=== PATIENT | male | born 1990 | race Caucasian/White ===

== ENCOUNTER 2017-01-07 20:43 | Emergency (ER) | payer MEDICARE, MEDICAID ==
--- NOTE | 2017-01-07 21:11 | EDM.PDOC ---
ED HPI GENERAL MEDICAL PROBLEM - General Chief Complaint: Burn Stated Complaint: BURN/LT ARM/FACE Time Seen by Provider: 01/07/17 21:07 Source of Information: Reports: RN - History of Present Illness INITIAL COMMENTS - FREE TEXT/NARRATIVE: He presented to the ED today after a scald injury from a pressure cooker. No blunt force trauma reports tetanus booster within the past three years. Left Arm Pain Score (Numeric/FACES): 10 - Related Data Allergies Allergy/AdvReac Type Severity Reaction Status Date / Time ibuprofen Allergy Other Verified 01/07/17 20:58 quetiapine [From Seroquel] Allergy Other Verified 01/07/17 20:58 Past Medical History HEENT History: Reports: None Cardiovascular History: Reports: None Respiratory History: Reports: None Gastrointestinal History: Reports: None Genitourinary History: Reports: None Musculoskeletal History: Reports: None Neurological History: Reports: Other (See Below) Other Neuro History: brain tumor Psychiatric History: Reports: None Endocrine/Metabolic History: Reports: None Hematologic History: Reports: None Immunologic History: Reports: None Oncologic (Cancer) History: Reports: None Dermatologic History: Reports: None - Infectious Disease History Infectious Disease History: Reports: Chicken Pox - Past Surgical History Head Surgeries/Procedures: Reports: None HEENT Surgical History: Reports: None Musculoskeletal Surgical History: Reports: Other (See Below) Other Musculoskeletal Surgeries/Procedures:: foot sx Social & Family History - Tobacco Use Smoking Status *Q: Never Smoker - Caffeine Use Caffeine Use: Reports: Soda, Tea - Recreational Drug Use Recreational Drug Use: No ED ROS GENERAL - Review of Systems Review Of Systems: See Below Constitutional: Reports: Other (no other complaints.) Respiratory: Denies: Shortness of Breath, Cough, Sputum ED EXAM, BURN/SMOKE INHALATION - Physical Exam Exam: See Below General Appearance: Alert, No Apparent Distress Respiratory: No Respiratory Distress Extremity Exam: Other (erythema over volar left forearm with some involvement of left hand and some blistering ulnar wrist. 1x1cm reddened area below mid lower lip. slight erythema upper anterior chest) Neurological: Alert Psychiatric: Normal Affect Course - Vital Signs Last Recorded V/S: Last Vital Signs Temp 97.1 F 01/07/17 20:58 Pulse 76 01/07/17 20:58 Resp 17 01/07/17 20:58 BP 167/98 H 01/07/17 20:58 Pulse Ox 97 01/07/17 20:58 - Orders/Labs/Meds Orders: Active Orders 24 hr Category Date Time Status Communication Order [RC] STAT Care 01/07/17 21:05 Ordered Departure - Departure Time of Disposition: 21:10 Disposition: Home, Self-Care 01 Condition: Good Clinical Impression: Scalding injury - Discharge Information Forms: ED Department Discharge Additional Instructions: keep maldonado clean recheck for a wound check tomorrow. blood pressure recheck with wound recheck tomorrow. - My Orders Last 24 Hours: My Active Orders 01/07/17 21:05 Communication Order [RC] STAT - Assessment/Plan Last 24 Hours: My Active Orders 01/07/17 21:05 Communication Order [RC] STAT
== END 2017-01-07 21:30 | disposition home or self-care (01) ==
LOC: MW.ED 20:43
CPT/HCPCS: 99282; 99283

== ENCOUNTER 2017-11-27 10:21 | Emergency (ER) | payer MEDICARE, MEDICAID ==
--- NOTE | 2017-11-27 11:41 | EDM.PDOC ---
ED HPI GENERAL MEDICAL PROBLEM - General Chief Complaint: ENT Problem Stated Complaint: SORE THROAT Time Seen by Provider: 11/27/17 11:37 Source of Information: Reports: Patient, Family History Limitations: Reports: No Limitations - History of Present Illness INITIAL COMMENTS - FREE TEXT/NARRATIVE: HISTORY AND PHYSICAL: []A 27-year-old male presenting with left-sided throat pain for 2 days History of Present Illness: []2 days pain has continued not improving He has been gargling with silver collodion Review of Systems: As per history of present illness and below otherwise all systems reviewed and negative. Past medical history: As per history of present illness and as reviewed below otherwise noncontributory. Surgical history: As per history of present illness and as reviewed below otherwise noncontributory. Social history: No reported history of drug or alcohol abuse. Family history: As per history of present illness and as reviewed below otherwise noncontributory. Physical exam: Alert and oriented male answering questions appropriately in full sentences without any shortness of breath HEENT: Atraumatic, normocehpalic, pupils reactive, negative for conjunctival pallor or scleral icterus, mucous membranes moist, throat clear, neck supple, nontender, trachea midline. Tenderness noted to the left neck area he does have shotty cervical adenopathy. Throat is erythematous mild edema on the left Lungs: Clear to auscultation, breath sounds equal bilaterally, chest non tender. Heart: S1S2, regular, negative for clicks, rubs, or JVD. Abdomen: Soft, nondistended, nontender. Negative for masses or hepatossplenmegaly. Negative for costovertebral tenderness. Pelvis: Stable nontender. Genitourinary: Deferred. Rectal: Deferred Extremities: Atraumatic, negative for cords or calf pain. Neurovascular unremarkable. Neuro: Awake, alert, oriented. Cranial nerves II through XII unremarkable. Cerebellum unremarkable. Motor and sensory unremarkable throughout. Exam nonfocal. Diagnostics: [] Therapeutics: [] Impression: []Acute pharyngitis Plan: []Discharged home Augmentin 875 twice a day 7 days Definitive disposition and diagnosis as appropriate pending reevaluation and review of above. Onset: Sudden Duration: Day(s): (2) Throat Pain Score (Numeric/FACES): 4 - Related Data Allergies Allergy/AdvReac Type Severity Reaction Status Date / Time ibuprofen Allergy Other Verified 11/27/17 10:53 quetiapine [From Seroquel] Allergy Other Verified 11/27/17 10:53 Home Meds: Home Meds ARIPiprazole [Aripiprazole] 20 mg PO BEDTIME 11/27/17 [History] Amoxicillin/Potassium Clav [Augmentin 875-125 Tablet] 1 each PO BID #14 tablet 11/27/17 [Rx] OXcarbazepine [Oxcarbazepine] 600 mg PO ASDIRECTED 11/27/17 [History] PARoxetine HCl [Paroxetine HCl] 15 mg PO BID 11/27/17 [History] Pantoprazole Sodium 40 mg PO DAILY 11/27/17 [History] buPROPion HCl [Wellbutrin Xl] 300 mg PO DAILY 11/27/17 [History] Past Medical History HEENT History: Reports: None Cardiovascular History: Reports: None Respiratory History: Reports: None Gastrointestinal History: Reports: None Genitourinary History: Reports: None Musculoskeletal History: Reports: None Neurological History: Reports: Other (See Below) Other Neuro History: brain tumor Psychiatric History: Reports: None Endocrine/Metabolic History: Reports: None Hematologic History: Reports: None Immunologic History: Reports: None Oncologic (Cancer) History: Reports: None Dermatologic History: Reports: None - Infectious Disease History Infectious Disease History: Reports: Chicken Pox - Past Surgical History Head Surgeries/Procedures: Reports: None HEENT Surgical History: Reports: None Musculoskeletal Surgical History: Reports: Other (See Below) Other Musculoskeletal Surgeries/Procedures:: foot sx Social & Family History - Caffeine Use Caffeine Use: Reports: Soda, Tea ED ROS ENT - Review of Systems Review Of Systems: ROS reveals no pertinent complaints other than HPI. ED EXAM, ENT - Physical Exam Exam: See Below (See dictation) Course - Vital Signs Last Recorded V/S: Last Vital Signs Temp 36.9 C 11/27/17 10:51 Pulse 82 11/27/17 10:51 Resp 20 11/27/17 10:51 BP 142/84 H 11/27/17 10:51 Pulse Ox 98 11/27/17 10:51 Departure - Departure Time of Disposition: 11:39 Disposition: Home, Self-Care 01 Condition: Good Clinical Impression: Pharyngitis Qualifiers: Pharyngitis/tonsillitis etiology: unspecified etiology Qualified Code(s): J02.9 - Acute pharyngitis, unspecified - Discharge Information Prescriptions: Amoxicillin/Potassium Clav [Augmentin 875-125 Tablet] 1 each PO BID #14 tablet Referrals: PCP,None [Primary Care Provider] - Additional Instructions: The following information is given to patients seen in the emergency department who are being discharged to home. This information is to outline your options for follow-up care. We provide all patients seen in our emergency department with a follow-up referral. The need for follow-up, as well as the timing and circumstances, are variable depending upon the specifics of your emergency department visit. If you don't have a primary care physician on staff, we will provide you with a referral. We always advise you to contact your personal physician following an emergency department visit to inform them of the circumstance of the visit and for follow-up with them and/or the need for any referrals to a consulting specialist. The emergency department will also refer you to a specialist when appropriate. This referral assures that you have the opportunity for followup care with a specialist. All of these measure are taken in an effort to provide you with optimal care, which includes your followup. Under all circumstances we always encourage you to contact your private physician who remains a resource for coordinating your care. When calling for followup care, please make the office aware that this follow-up is from your recent emergency room visit. If for any reason you are refused follow-up, please contact the [facility] emergency department at and asked to speak to the emergency department charge nurse. He had acute pharyngitis Prescription for Augmentin 875 mg one twice daily for 7 days Follow-up with your primary care provider next week Return to emergency room as directed and discussed
[2017-11-27 12:10] VITALS: BP 141/86
== END 2017-11-27 12:08 | disposition home or self-care (01) ==
LOC: MW.ED 10:21
DX: J02.9 Acute pharyngitis, unspecified (principal); Z88.6 Allergy status to analgesic agent; Z88.8 Allergy status to other drugs, medicaments and biological substances; Z79.899 Other long term (current) drug therapy
CPT/HCPCS: 99282; 99283

== ENCOUNTER 2017-12-03 19:46 | Emergency (ER) | payer MEDICARE, MEDICAID ==
--- NOTE | 2017-12-03 20:07 | EDM.PDOC ---
ED HPI GENERAL MEDICAL PROBLEM - General Chief Complaint: Lower Extremity Injury/Pain Stated Complaint: SCREWS IN FEET IS HURTING Time Seen by Provider: 12/03/17 20:07 Source of Information: Reports: Patient - History of Present Illness INITIAL COMMENTS - FREE TEXT/NARRATIVE: HISTORY AND PHYSICAL: History of present illness: [Patient has a history of hammertoe and screw placement in 2011, he is now having 8 out of 10 pain with walking and feels that the screws are working loose as it feels as if sharp pain while walking, pain is relieved by nonweightbearing positions pain involves bilateral great toes No fever nausea vomiting chills sweats Review of systems: As per history of present illness and below otherwise all systems reviewed and negative. Past medical history: As per history of present illness and as reviewed below otherwise noncontributory. Surgical history: As per history of present illness and as reviewed below otherwise noncontributory. Social history: No reported history of drug or alcohol abuse. Family history: As per history of present illness and as reviewed below otherwise noncontributory. Physical exam: HEENT: Atraumatic, normocephalic, pupils reactive, negative for conjunctival pallor or scleral icterus, mucous membranes moist, throat clear, neck supple, nontender, trachea midline. Lungs: Clear to auscultation, breath sounds equal bilaterally, chest nontender. Heart: S1S2, regular, negative for clicks, rubs, or JVD. Abdomen: Soft, nondistended, nontender. Negative for masses or hepatosplenomegaly. Negative for costovertebral tenderness. Pelvis: Stable nontender. Genitourinary: Deferred. Rectal: Deferred. Extremities: Atraumatic, negative for cords or calf pain. Neurovascular unremarkable. Feet unaffected above the ankle no redness warmth or fluctuance lesion surgical scars noted tender on the distal metatarsal joint bilaterally Neuro: Awake, alert, oriented. Cranial nerves II through XII unremarkable. Cerebellum unremarkable. Motor and sensory unremarkable throughout. Exam nonfocal. Diagnostics: [Foot 2 views left Foot 2 views right] CBC uric acid Therapeutics: [Indocin 50 mg by mouth 3 times a day #30 no refill Gout diet discussed Follow-up with primary care ] Impression: biLateral foot pain] Definitive disposition and diagnosis as appropriate pending reevaluation and review of above. Bilateral Feet Pain Score (Numeric/FACES): 7 - Related Data Allergies Allergy/AdvReac Type Severity Reaction Status Date / Time ibuprofen Allergy Other Verified 12/03/17 20:23 quetiapine [From Seroquel] Allergy Other Verified 12/03/17 20:23 Home Meds: Home Meds ARIPiprazole [Aripiprazole] 20 mg PO BEDTIME 11/27/17 [History] Amoxicillin/Potassium Clav [Augmentin 875-125 Tablet] 1 each PO BID #14 tablet 11/27/17 [Rx] OXcarbazepine [Oxcarbazepine] 600 mg PO ASDIRECTED 11/27/17 [History] PARoxetine HCl [Paroxetine HCl] 15 mg PO BID 11/27/17 [History] Pantoprazole Sodium 40 mg PO DAILY 11/27/17 [History] buPROPion HCl [Wellbutrin Xl] 300 mg PO DAILY 11/27/17 [History] Past Medical History HEENT History: Reports: None Cardiovascular History: Reports: None Respiratory History: Reports: None Gastrointestinal History: Reports: None Genitourinary History: Reports: None Musculoskeletal History: Reports: None Neurological History: Reports: Other (See Below) Other Neuro History: brain tumor Psychiatric History: Reports: None Endocrine/Metabolic History: Reports: None Hematologic History: Reports: None Immunologic History: Reports: None Oncologic (Cancer) History: Reports: None Dermatologic History: Reports: None - Infectious Disease History Infectious Disease History: Reports: Chicken Pox - Past Surgical History Head Surgeries/Procedures: Reports: None HEENT Surgical History: Reports: None Musculoskeletal Surgical History: Reports: Other (See Below) Other Musculoskeletal Surgeries/Procedures:: foot sx Social & Family History - Family History Family Medical History: Noncontributory - Caffeine Use Caffeine Use: Reports: Soda, Tea Review of Systems - Review of Systems Review Of Systems: See Below ED EXAM, GENERAL - Physical Exam Exam: See Below Course - Vital Signs Last Recorded V/S: Last Vital Signs Temp 97.6 F 12/03/17 20:00 Pulse 104 H 12/03/17 20:00 Resp 18 12/03/17 20:00 BP 142/74 H 12/03/17 20:00 Pulse Ox 92 L 12/03/17 20:00 - Orders/Labs/Meds Orders: Active Orders 24 hr Category Date Time Status Foot 2V Lt [CR] Stat Exams 12/03/17 20:06 Taken Foot 2V Rt [CR] Stat Exams 12/03/17 20:06 Taken Labs: Laboratory Tests 12/03/17 12/03/17 Range/Units 20:24 20:24 WBC 9.48 (4.0-11.0) K/uL RBC 5.29 (4.50-5.90) M/uL Hgb 16.8 (13.0-17.0) g/dL Hct 47.6 (38.0-50.0) % MCV 90.0 (80.0-98.0) fL MCH 31.8 (27.0-32.0) pg MCHC 35.3 (31.0-37.0) g/dL RDW Std Deviation 43.8 (28.0-62.0) fl RDW Coeff of Wiley 13 (11.0-15.0) % Plt Count 232 (150-400) K/uL MPV 9.90 (7.40-12.00) fL Neut % (Auto) 57.6 (48.0-80.0) % Lymph % (Auto) 33.6 (16.0-40.0) % [place] % (Auto) 7.8 (0.0-15.0) % Eos % (Auto) 0.8 (0.0-7.0) % Baso % (Auto) 0.2 (0.0-1.5) % Neut # (Auto) 5.5 (1.4-5.7) K/uL Lymph # (Auto) 3.2 H (0.6-2.4) K/uL [place] # (Auto) 0.7 (0.0-0.8) K/uL Eos # (Auto) 0.1 (0.0-0.7) K/uL Baso # (Auto) 0.0 (0.0-0.1) K/uL Nucleated RBC % 0.0 /100WBC Nucleated RBCs # 0 K/uL Uric Acid 7.1 (2.6-7.2) mg/dL Departure - Departure Time of Disposition: 21:23 Disposition: Home, Self-Care 01 Condition: Good Clinical Impression: Foot pain, Gout - Discharge Information Referrals: PCP,None [Primary Care Provider] - Forms: ED Department Discharge Additional Instructions: Medication as prescribed Diet as discussed Return if symptoms persist or worsen Follow-up with primary care or podiatry for continued management [facility] - Primary Care [address] [place] [address] [facility] Primary Care - Podiatry [address] [place] [address] The following information is given to patients seen in the emergency department who are being discharged to home. This information is to outline your options for follow-up care. We provide all patients seen in our emergency department with a follow-up referral. The need for follow-up, as well as the timing and circumstances, are variable depending upon the specifics of your emergency department visit. If you don't have a primary care physician on staff, we will provide you with a referral. We always advise you to contact your personal physician following an emergency department visit to inform them of the circumstance of the visit and for follow-up with them and/or the need for any referrals to a consulting specialist. The emergency department will also refer you to a specialist when appropriate. This referral assures that you have the opportunity for follow-up care with a specialist. All of these measure are taken in an effort to provide you with optimal care, which includes your follow-up. Under all circumstances we always encourage you to contact your private physician who remains a resource for coordinating your care. When calling for follow-up care, please make the office aware that this follow-up is from your recent emergency room visit. If for any reason you are refused follow-up, please contact the [facility] emergency department at and asked to speak to the emergency department charge nurse. - My Orders Last 24 Hours: My Active Orders 12/03/17 20:06 Foot 2V Lt [CR] Stat Foot 2V Rt [CR] Stat - Assessment/Plan Last 24 Hours: My Active Orders 12/03/17 20:06 Foot 2V Lt [CR] Stat Foot 2V Rt [CR] Stat
[2017-12-03 21:51] VITALS: BP 134/88
--- NOTE | 2017-12-06 11:25 | CR ---
EXAM DATE: 12/03/17 PATIENT'S AGE: 27 Patient: JASSI MARIANNE Facility: [place], [place] Site . Site : 1990 Study: XRay Extremity Left FOOT [id number]/[id number] 8:27:37 PM Ordering Physician: Bijan Amaral Final Report: INDICATION: pain TECHNIQUE: Two views of the left foot COMPARISON: None FINDINGS: Bones: Posterior changes on the head of the 1st metatarsal, proximal phalanx of the left great toe, and 2nd metatarsal head. No acute fractures or bone lesions. Joint spaces: Hallux valgus deformity 1st metatarsophalangeal joint. Soft tissues: Unremarkable. IMPRESSION: No acute bony abnormality or evidence of hardware complication Dictated by Navdeep Gonzalez MD @ 12/03/2017 8:32:51 PM Dictated by: Navdeep Gonzalez MD @ 12/03/2017 20:33:08 (Electronic Signature) Report Signed by Proxy. AGUSTINA
--- NOTE | 2017-12-06 11:25 | CR ---
EXAM DATE: 12/03/17 PATIENT'S AGE: 27 Patient: JASSI MARIANNE Facility: [place], [place] Site . Site : 1992 Study: XRay Extremity Right FOOT-12/03/2017 8:27:20 PM Ordering Physician: Bijan Amaral Final Report: INDICATION: pain TECHNIQUE: Two views of the right foot COMPARISON: None FINDINGS: Bones: Postsurgical changes along the proximal 1st phalanx, 1st metatarsal head , 2nd and 3rd metatarsal heads. No evidence of hardware complication. No acute bony abnormality. No bone lesions. Joint spaces: Hallux valgus deformity of the 1st metatarsophalangeal joint Soft tissues: Unremarkable. IMPRESSION: No acute bony abnormality or evidence of hardware complication. Dictated by Navdeep Gonzalez MD @ 12/03/2017 8:31:17 PM Dictated by: Navdeep Gonzalez MD @ 12/03/2017 20:31:47 (Electronic Signature) Report Signed by Proxy. AGUSTINA
== END 2017-12-03 21:40 | disposition home or self-care (01) ==
LOC: MW.ED 19:46
DX: M10.9 Gout, unspecified (principal); Z88.6 Allergy status to analgesic agent; Z88.8 Allergy status to other drugs, medicaments and biological substances; Z79.899 Other long term (current) drug therapy
CPT/HCPCS: 36415; 73620-26-LT; 73620-26-RT; 73620-LT; 73620-RT; 84550; 85025; 99283

== ENCOUNTER 2019-01-04 19:08 | Emergency (ER) | payer MEDICARE, MEDICAID ==
--- NOTE | 2019-01-04 19:21 | EDM.PDOC ---
ED HPI GENERAL MEDICAL PROBLEM - General Chief Complaint: Lower Extremity Injury/Pain Stated Complaint: PT HURT RT LEG Time Seen by Provider: 01/04/19 19:17 - History of Present Illness INITIAL COMMENTS - FREE TEXT/NARRATIVE: HISTORY AND PHYSICAL: History of present illness: Patient's 28-year-old white male presents with concern of acute right leg injury that occurred at work he denies other trauma or concern Review of systems: As per history of present illness and below otherwise all systems reviewed and negative. Past medical history: As per history of present illness and as reviewed below otherwise noncontributory. Surgical history: As per history of present illness and as reviewed below otherwise noncontributory. Social history: No reported history of drug or alcohol abuse. Family history: As per history of present illness and as reviewed below otherwise noncontributory. Physical exam: HEENT: Atraumatic, normocephalic, pupils reactive, negative for conjunctival pallor or scleral icterus, mucous membranes moist, throat clear, neck supple, nontender, trachea midline. Lungs: Clear to auscultation, breath sounds equal bilaterally, chest nontender. Heart: S1S2, regular, negative for clicks, rubs, or JVD. Abdomen: Soft, nondistended, nontender. Negative for masses or hepatosplenomegaly. Negative for costovertebral tenderness. Pelvis: Stable nontender. Genitourinary: Deferred. Rectal: Deferred. Extremities: Right leg has mild tenderness over the anterior aspect of his distal tibia is no point tenderness crepitation seamless neurovascular exams unremarkable. Neuro: Awake, alert, oriented. Cranial nerves II through XII unremarkable. Cerebellum unremarkable. Motor and sensory unremarkable throughout. Exam nonfocal. Diagnostics: X-ray right tib-fib Therapeutics: To be determined Impression: #1 right lower extremity injury Definitive disposition and diagnosis as appropriate pending reevaluation and review of above. - Related Data Allergies Allergy/AdvReac Type Severity Reaction Status Date / Time ibuprofen Allergy Other Verified 01/04/19 19:17 quetiapine [From Seroquel] Allergy Other Verified 01/04/19 19:17 Home Meds: Home Meds ARIPiprazole [Aripiprazole] 20 mg PO BEDTIME 11/27/17 [History] OXcarbazepine [Oxcarbazepine] 600 mg PO ASDIRECTED 11/27/17 [History] PARoxetine HCl [Paroxetine HCl] 15 mg PO BID 11/27/17 [History] Pantoprazole Sodium 40 mg PO DAILY 11/27/17 [History] buPROPion HCl [Wellbutrin Xl] 300 mg PO DAILY 11/27/17 [History] Past Medical History HEENT History: Reports: None Cardiovascular History: Reports: None Respiratory History: Reports: None Gastrointestinal History: Reports: None Genitourinary History: Reports: None Musculoskeletal History: Reports: None Neurological History: Reports: Other (See Below) Other Neuro History: brain tumor Psychiatric History: Reports: None Other Psychiatric History: SAD Endocrine/Metabolic History: Reports: None Hematologic History: Reports: None Immunologic History: Reports: None Oncologic (Cancer) History: Reports: None Dermatologic History: Reports: None - Infectious Disease History Infectious Disease History: Reports: Chicken Pox - Past Surgical History Head Surgeries/Procedures: Reports: None HEENT Surgical History: Reports: None Musculoskeletal Surgical History: Reports: Other (See Below) Other Musculoskeletal Surgeries/Procedures:: foot sx Social & Family History - Family History Family Medical History: Noncontributory - Caffeine Use Caffeine Use: Reports: Soda, Tea Review of Systems - Review of Systems Review Of Systems: ROS reveals no pertinent complaints other than HPI. ED EXAM, GENERAL - Physical Exam Exam: See Below (See dictation) Course - Orders/Labs/Meds Orders: Active Orders 24 hr Category Date Time Status Tibia Fibula Rt [CR] Stat Exams 01/04/19 19:19 Ordered Departure - Departure Time of Disposition: 19:20 Disposition: Home, Self-Care 01 Condition: Good Clinical Impression: Leg injury - Discharge Information Additional Instructions: The following information is given to patients seen in the emergency department who are being discharged to home. This information is to outline your options for follow-up care. We provide all patients seen in our emergency department with a follow-up referral. The need for follow-up, as well as the timing and circumstances, are variable depending upon the specifics of your emergency department visit. If you don't have a primary care physician on staff, we will provide you with a referral. We always advise you to contact your personal physician following an emergency department visit to inform them of the circumstance of the visit and for follow-up with them and/or the need for any referrals to a consulting specialist. The emergency department will also refer you to a specialist when appropriate. This referral assures that you have the opportunity for followup care with a specialist. All of these measure are taken in an effort to provide you with optimal care, which includes your followup. Under all circumstances we always encourage you to contact your private physician who remains a resource for coordinating your care. When calling for followup care, please make the office aware that this follow-up is from your recent emergency room visit. If for any reason you are refused follow-up, please contact the [facility] emergency department at and asked to speak to the emergency department charge nurse. Motrin/Tylenol as directed follow-up primary medical doctor as needed as discussed return as needed as discussed - My Orders Last 24 Hours: My Active Orders 01/04/19 19:19 Tibia Fibula Rt [CR] Stat - Assessment/Plan Last 24 Hours: My Active Orders 01/04/19 19:19 Tibia Fibula Rt [CR] Stat
--- NOTE | 2019-01-04 20:11 | CR ---
INDICATION: pain RIGHT TIBIA/FIBULA No fracture, dislocation, or destructive lesion of bone is seen. No arthritic changes or soft tissue abnormalities are identified. IMPRESSION: Negative right tibia/fibula radiographs. EAMON MORSE MD [facility] Dictated by: Iban Morse MD @ 01/04/2019 20:10:52 (Electronically Signed)
[2019-01-04 20:18] VITALS: BP 141/94
== END 2019-01-04 20:25 | disposition home or self-care (01) ==
LOC: MW.ED 19:08
DX: S89.91XA Unspecified injury of right lower leg, initial encounter (principal); Z79.899 Other long term (current) drug therapy; Z88.6 Allergy status to analgesic agent; Z88.8 Allergy status to other drugs, medicaments and biological substances; W22.8XXA Striking against or struck by other objects, initial encounter; Y99.0 Civilian activity done for income or pay
CPT/HCPCS: 73590-26-RT; 73590-RT; 99283; 99283-25